=== PATIENT | female | born 1995 | race Caucasian/White ===

== ENCOUNTER 2021-12-29 23:02 | Outpatient (CLI) | payer MEDICAID, SELFPAY ==
[2021-12-29 23:44] VITALS: TEMP 35.8
[2021-12-29 23:46] VITALS: BP 95/54; PULSE 95
[2021-12-29 23:51] VITALS: RESP 16; O2SAT 96
[2021-12-29 23:57] LABS: Nitrazine Paper, PH Inconclusive
[2021-12-30 00:01] VITALS: BP 89/51; PULSE 94
[2021-12-30 00:03] VITALS: BMI 42.5
[2021-12-30 00:05] LABS: Actim Prom Negative
[2021-12-30 00:08] VITALS: TEMP 36.1
[2021-12-30 00:33] VITALS: BP 89/51; PULSE 94; RESP 16; TEMP 36.1; O2SAT 96
[2021-12-30 00:44] LABS: Amphetamines Screen Urine Negative (Negative); Barbiturates Screen Urine Negative (Negative); Benzodiazepines Screen Urine Negative (Negative); Cocaine Screen Urine Negative (Negative); Opiate Screen Urine Negative (Negative); PCP Screen Urine Negative (Negative); THC Screen Urine Positive (Negative)
== END 2021-12-30 00:30 | disposition home or self-care (01) ==
LOC: OPOB 23:08 → OBGYN 23:15
PROVIDERS: Visit Provider Family Medicine
DX: O26.899 Other specified pregnancy related conditions, unspecified trimester (principal); Z3A.00 Weeks of gestation of pregnancy not specified; R10.9 Unspecified abdominal pain; N89.8 Other specified noninflammatory disorders of vagina
CPT/HCPCS: 59025; 80306; 83986; 84112; 99211

== ENCOUNTER 2022-01-09 19:05 | Inpatient (IN) | payer MEDICAID, SELFPAY ==
[2022-01-09] VITALS (10 sets, daily range): BP systolic 100–148; BP diastolic 56–63; PULSE 81–95; RESP 15; O2SAT 97–98; BMI 42.8
[2022-01-09 19:37] LABS: Basophils % 0.2 %; Eosinophils # 0.1 10^3/uL (0.0-0.8); Eosinophils % 0.7 %; Hematocrit 35.5 % (37.0-47.0); Hemoglobin 11.6 g/dL (11.5-15.3); Lymphocytes # 3.1 10^3/uL (0.8-4.8); Lymphocytes % 22.5 %; Mean Corpuscular HGB Conc 32.7 g/dL (30.0-36.0); Mean Corpuscular Volume 91.7 fl (81-99); Mean Platelet Volume 10.2 fL (7.4-10.4); Monocytes % 7.6 %; Neutrophils % 67.8 %; Nucleated Red Blood Cells % 0 %; Platelet Count 326 10^3/cmm (130-400); Red Blood Count 3.87 10^6/uL (4.1-5.3); Red Cell Distribution Width 13.5 % (12.1-15.1); White Blood Count 13.7 10^3/uL (4.0-10.0)
[2022-01-09] MEDS: dextrose 5%-lactated ringers 1,000 ML 125 ML IV (19:51)
[2022-01-09] MEDS: ampicillin 2,000 MG in sodium chloride 0.9% (plus) 50 ML 100 MG IV (19:51)
[2022-01-09 20:11] LABS: Amphetamines Screen Urine Negative (Negative); Barbiturates Screen Urine Negative (Negative); Benzodiazepines Screen Urine Negative (Negative); Cocaine Screen Urine Negative (Negative); Opiate Screen Urine Negative (Negative); PCP Screen Urine Negative (Negative); THC Screen Urine Positive (Negative)
[2022-01-09] MEDS: miSOPROStol 100 mcg tablet 25 MCG VAGINAL (20:21)
[2022-01-09] MEDS: lactated ringers 1,000 ML 999 ML IV ×2 (22:48→23:47)
[2022-01-09] MEDS: ampicillin 1,000 MG in sodium chloride 0.9% (plus) 50 ML 100 MG IV (23:46)
[2022-01-10] VITALS (86 sets, daily range): BP systolic 73–133; BP diastolic 39–80; PULSE 67–98; TEMP 36.6–38.1; O2SAT 98–99
--- NOTE | 2022-01-10 00:19 | ANES.PREANE2 ---
Pre-Anesthetic Assessment Height/Weight: Height 1.6 m Weight 109.769 kg Pulse Resp BP Pulse Ox 88 15 93/55 98 01/10/22 00:15 01/09/22 19:08 01/10/22 00:15 01/10/22 00:10 Preop Diagnosis: Labor pain SUSANA Was Beta Aura taken within 24 hours: N/A Was Clonidine taken within 24 hours: N/A Social Tobacco and No alcohol 1/2 pack/day pack(s) per day Exam alert, oriented x 3, clear to auscultation bilaterally and regular rate & rhythm Airway Submandibular: within normal limits Cervical ROM: within normal limits Mallampati: Class II Dentition: full History/ROS No significant history except as noted and No significant complaints Pulmonary None reported CV/HEM None reported None reported Hepatic None reported GI None reported Metabolic Morbid Obesity and None reported Musc/skel None reported Neuropsych None reported Anesthetic Plan ASA status: 2 Anesthesia: Regional (specify below) Other: SUSANA Risk of > 500 ml blood loss (7ml/kg in children): No Medications/Allergies Home Medications Medication Instructions Recorded Confirmed Last Taken Type citalopram 40 mg tablet (Celexa) 40 mg PO DAILY 01/09/22 01/09/22 01/08/22 19:00 History vitamins-iron fumarate 65 1 tab PO DAILY 01/09/22 01/09/22 01/08/22 19:00 History mg iron-folic acid 1 mg tablet Allergies Allergy/AdvReac Type Severity Reaction Status Date / Time cyclobenzaprine Allergy Mild ALGY-Rash Verified 01/09/22 20:05 [From Flexeril] lavender (Lavandula Allergy Unknown Verified 01/09/22 20:05 angustifolia) shrimp Allergy Unknown Verified 01/09/22 20:05 Current Medications Generic Name Dose Route Start Last Admin Trade Name Freq PRN Reason Stop Dose Admin Dextrose/Lactated Ringer's 1,000 mls @ 125 mls/hr 01/09/22 19:15 01/09/22 19:51 Dextrose 5%-Lactated Ringers IV 125 mls/hr .Q8H JOSE Administration Ampicillin Sodium 1,000 mg/ 50 mls @ 100 mls/hr 01/09/22 23:15 01/09/22 23:46 Sodium Chloride IV 100 mls/hr Q4H JOSE Administration Protocol Lactated Ringer's 1,000 mls @ 999 mls/hr 01/09/22 22:46 01/09/22 23:47 Lactated Ringers IV 999 mls/hr .Q1H1M PRN Administration See label comments Misoprostol 25 mcg 01/09/22 19:09 01/09/22 20:21 Misoprostol 100 Mcg Tablet VAGINAL 25 mcg Q4H PRN Administration cervical ripening PFSH Anesthesia Female Reproductive History : 3 Data Anesthesia : 01/09/22 19:29 Short CBC 01/09/22 Range/Units 19:29 WBC 13.7 H (4.0-10.0) 10^3/uL Hgb 11.6 (11.5-15.3) g/dL Hct 35.5 L (37.0-47.0) % MCV 91.7 (81-99) fl Plt Count 326 (130-400) 10^3/cmm Neut % (Auto) 67.8 % Neut # (Auto) 9.30 H (1.8-7.7) 10^3/uL Cardiac Studies: No Data to Display
--- NOTE | 2022-01-10 00:22 | ANES.PROC ---
Anesthesia Procedures Procedure/Date: 01/10/22 Epidural: Time Out Performed: Yes Consents Signed: Procedure Consent Consent: requested by attending/covering physician, from patient, risks and benefits reviewed and patient agrees to proceed Lumbar Level: L2-L3 Epidural position: sitting Epidural procedure: sterile prep of area, 1% lidocaine to numb the area, 18 g needle, negative for paresthesia passed, test dose given, 1.5% xylocaine 1:200k epi (4cc), 0.2% Ropivacaine bolus ml (4cc and Fentanyl 100mcg), placed PCEA, no systemic response, sterile dressing applied, L.U.D. no apparent complications and 0.2% Ropiavacaine @ mls/hr (11cc/hour. MAKENNA at 8cm. cath place 3cm into space. Pt tolerated well)
[2022-01-10] MEDS: dextrose 5%-lactated ringers 1,000 ML 125 ML IV ×2 (03:41→09:04)
[2022-01-10] MEDS: ampicillin 1,000 MG in sodium chloride 0.9% (plus) 50 ML 100 MG IV ×2 (03:44→07:42)
[2022-01-10] MEDS: oxytocin 30 UNIT/500 ML BAG IV (09:35)
[2022-01-10] MEDS: ondansetron 2 mg/ML SDV 2 mL 4 MG IVP (10:59)
--- NOTE | 2022-01-10 11:40 | P.PCNOB_ITS ---
Delivery Note: Date of delivery: January 10, 2022 Pre-delivery diagnoses: 1. 26-year-old 3 para 2-0-0-2 with an estimated gestational age of 40 weeks presenting for induction. 2. Marijuana positive 3. Rh- Post-delivery diagnoses: Status post spontaneous vaginal delivery Procedure: Spontaneous vaginal delivery Delivering Physician: Regulo Stuart Estimated blood loss (mL): 150 Pre-Delivery Course: The patient presented to the hospital for induction due to postdates. She was placed on Cytotec 25 mcg x 2. An amniotomy was performed. She made minimal change for about 4 hours, and Pitocin was added. Delivery: DELIVERY: The patient progressed to complete without difficulty. She delivered a male with a weight of 7 pounds 14 ounces with Apgars of 7, 9. The baby was delivered from the MARIANNA position and placed on the mother's abdomen. The cord was then clamped and cut. There was a nuchal cord x1 and an arm cord x1. There was no meconium. The placenta and 3 vessel cord were delivered intact shortly thereafter. The perineum and vaginal vault were carefully examined. A second-degree posterior midline laceration was noted which was repaired with 3-0 Vicryl. Both the mother and the baby were in stable condition. Post-Delivery Status: Good A&P Assessment and plan (1) 40 weeks gestation of : Routine care Status: Resolved (2) Spontaneous vaginal delivery: Status: Resolved Coding Level of Care Code Acute Senior Network Architect for Chg Fwd Diagnoses 40 weeks gestation of Z3A.40 Spontaneous vaginal delivery O80
--- NOTE | 2022-01-10 13:09 | PC.NURSE ---
This nurse spoke to Dr. Stuart who stated that he had looked over tracing AND wanted this nurse to continue to go up on the pitocin at 1000, this nurse spoke to sade again at 1021 who stated to continue to go up on the pitocin and that he had seen the tracing, this nurse spoke to Sade again at 1044 who stated he had reviewed the tracing and stated to go up again on the pitocin. This nurse spoke to sade again at 1058 to let him know I had turned the pitocin off at 1051 which he agreed that was the right decision.
--- NOTE | 2022-01-10 17:36 | PC.NURSE ---
Dr. Stuart came in and rubbed the pt's uterus he did note it was above the umbilicus but was firm and scant bleeding so he was not concerned. This was at 1720.
[2022-01-10] MEDS: docusate sodium 100 mg Capsule PO (18:06)
[2022-01-10] MEDS: ibuprofen 800 mg tablet PO ×2 (18:06→21:01)
--- NOTE | 2022-01-10 20:35 | PC.NURSE ---
patient off unit for cigarette. Dr. Stuart aware and has okayed patient to be off unit to smoke per day shift.
[2022-01-11] VITALS (7 sets, daily range): BP systolic 103–130; BP diastolic 61–74; PULSE 74–85; RESP 15–18; TEMP 36.7–37.8
[2022-01-11 00:51] LABS: Hematocrit 34.9 % (37.0-47.0); Hemoglobin 11.3 g/dL (11.5-15.3); Mean Corpuscular HGB Conc 32.4 g/dL (30.0-36.0); Mean Corpuscular Hemoglobin 30.2 pg (28.0-34.0); Mean Corpuscular Volume 93.3 fl (81-99); Mean Platelet Volume 10.8 fL (7.4-10.4); Platelet Count 285 10^3/cmm (130-400); Red Blood Count 3.74 10^6/uL (4.1-5.3); Red Cell Distribution Width 13.5 % (12.1-15.1); White Blood Count 14.1 10^3/uL (4.0-10.0)
--- NOTE | 2022-01-11 01:54 | PC.NURSE ---
This nurse entered room to have patient sign consent for Rhogam and get vitals, patient states I will get it but not right now, I'm tired.
--- NOTE | 2022-01-11 08:37 | ANE.PACU2 ---
Inpatient post-anesthesia follow up: Airway intact: Yes Vital signs: Temperature 98.0 F Pulse Rate 85 Respiratory Rate 15 Blood Pressure 117/67 Pulse Oximetry 98 Oxygen Delivery Me thod Non-Rebreather Oxygen Flow Rate 10 Fraction of Inspir ed Oxygen Hydration adequate: Yes Nausea and vomiting: No Pain level: 2 Mental status: Baseline
[2022-01-11] MEDS: ibuprofen 800 mg tablet PO (09:25)
[2022-01-11] MEDS: docusate sodium 100 mg Capsule PO (09:25)
[2022-01-11] MEDS: prenatal vitamin Capsule 1 CAP PO (09:25)
--- NOTE | 2022-01-14 08:06 | PM.OPHPUD ---
Labor & Delivery H&P Update Date of Procedure: January 09, 2022 Date H&P Performed: 01/05/22 Changes to previous documentation: None Admission Diagnosis: 26-year-old 3 para 2-0-0-2 at 40 weeks and 4 days estimated gestational age presenting for induction Preop diagnosis: Postdates multigravida female Planned procedure: Spontaneous vaginal delivery Other information: The patient is a 26-year-old multigravida female presenting to the hospital for induction. was remarkable for being positive for marijuana. Her blood type was B-. Her antibody screen was negative. She was GBS positive. She is rubella immune. The remainder of her labs are within normal limits.
--- NOTE | 2022-01-14 08:09 | PM.OBGYDC ---
Discharge Providers SPECIAL AGENT SECRET SERVICE Date of Admission: 01/09/22 19:05 Date of Discharge: 01/11/22 Attending Provider at Admission: Regulo Stuart MD Attending Provider at Discharge: Regulo Stuart MD Diagnoses at Discharge Discharge Diagnosis (1) 40 weeks gestation of : Status: Resolved (2) Spontaneous vaginal delivery: Status: Resolved Reason for Visit Reason for Visit: INDUCTION Hospital Course Hospital Course The patient presented to the hospital for induction due to postdates. She was placed on GBS protocol due to her GBS status. She was placed on Cytotec. An amniotomy was performed. Pitocin was added for augmentation. She progressed to complete and had an unremarkable delivery of a healthy-appearing male . Her course was also unremarkable. DFS was contacted due to the fact that she did not have custody of her previous children. Her bleeding was within normal limits. Her pain was well controlled. She did have to leave frequently for smoking. There were no other concerns. Information Peripartum Data: Infant Delivery Method: Vaginal Physical Exam Narrative: The patient is alert. She appears comfortable. Her heart has a regular rate and rhythm with no murmurs appreciated. Lungs are clear to auscultation bilaterally. Her fundus is firm and below the umbilicus. Urinary Catheter Management: Bear: Cath Placed During This Visit: yes Reason for Continuing Indwelling Catheter: Other Urinary Catheter Date of Insertion: 01/10/22 Urinary Catheter Time of Insertion: 00:40 Discharge Data Studies Completed and Pending Laboratory Results WBC 14.1 10^3/uL (4.0-10.0) H 01/11/22 00:13 RBC 3.74 10^6/uL (4.1-5.3) L 01/11/22 00:13 Hgb 11.3 g/dL (11.5-15.3) L 01/11/22 00:13 Hct 34.9 % (37.0-47.0) L 01/11/22 00:13 MCV 93.3 fl (81-99) 01/11/22 00:13 MCH 30.2 pg (28.0-34.0) 01/11/22 00:13 MCHC 32.4 g/dL (30.0-36.0) 01/11/22 00:13 RDW 13.5 % (12.1-15.1) 01/11/22 00:13 Plt Count 285 10^3/cmm (130-400) 01/11/22 00:13 MPV 10.8 fL (7.4-10.4) H 01/11/22 00:13 Neut % (Auto) 67.8 % 01/09/22 19:29 Lymph % (Auto) 22.5 % 01/09/22 19:29 [place] % (Auto) 7.6 % 01/09/22 19:29 Eos % (Auto) 0.7 % 01/09/22 19:29 Baso % (Auto) 0.2 % 01/09/22 19:29 Neut # (Auto) 9.30 10^3/uL (1.8-7.7) H 01/09/22 19:29 Lymph # (Auto) 3.1 10^3/uL (0.8-4.8) 01/09/22 19:29 [place] # (Auto) 1.0 10^3/uL (0.2-0.9) H 01/09/22 19:29 Eos # (Auto) 0.1 10^3/uL (0.0-0.8) 01/09/22 19:29 Baso # (Auto) 0.0 10^3/uL (0.0-0.1) 01/09/22 19: Nucleated RBC % (auto) 0 % 01/09/22 19:29 Nucleated RBCs # 0.0 /100WBC 01/09/22 19:29 Urine Opiates Screen Negative ng/mL (Negative) 01/09/22 19:35 Ur Barbiturates Screen Negative ng/mL (Negative) 01/09/22 19:35 Ur Phencyclidine Scrn Negative ng/mL (Negative) 01/09/22 19:35 Ur Amphetamines Screen Negative ng/mL (Negative) 01/09/22 19:35 U Benzodiazepines Scrn Negative ng/mL (Negative) 01/09/22 19:35 Urine Cocaine Screen Negative ng/mL (Negative) 01/09/22 19:35 U Marijuana (THC) Screen Positive ng/mL (Negative) H 01/09/22 19:35 Blood Type B Negative 01/09/22 19:35 Rho(D) Type Negative 01/09/22 19:35 Antibody Screen Negative 01/09/22 19:35 Screen Negative (Negative) 01/11/22 00:13 Vitals Last Vital Signs Temp 98.9 F 01/11/22 14:04 Pulse 74 01/11/22 14:04 Resp 18 01/11/22 14:04 BP 130/74 01/11/22 14:04 Pulse Ox 98 01/10/22 00:10 Discharge Plan Discharge Patient Disposition: Home Condition: Stable Prescriptions: New ibuprofen 800 mg Tablet 800 mg PO TID Qty: 45 0RF Continued Celexa 40 mg Tablet 40 mg PO DAILY 0RF vit-iron fum-folic ac 65 mg iron- 1 mg Tablet 1 tab PO DAILY 0RF Discharge Orders: Discharge Order (Routine); Ordered 01/11/22 Ordered By: Regulo Stuart Referrals: Regulo Stuart MD [Physician] - 02/28/22 2:15 pm Discharge Diet: Usual diet Discharge Activity: Limit activity as instructed Patient Instructions: Depression (DC), Bleeding (DC), Preeclampsia and Eclampsia After Delivery (GEN), OB Discharge Report, OB Food/Drug Interaction Guide, OB Care at Home, Opioid Safety, OB Home Care, OB Vaginal Deliveries, Abnormal Bleeding Discharge Attestations SPECIAL AGENT SECRET SERVICE Time Spent in Discharge Care*: greater than 30 min Coding Level of Care Code Acute Commercial Leasing Agent for Chg Fwd Diagnoses 40 weeks gestation of Z3A.40 Spontaneous vaginal delivery O80
== END 2022-01-11 14:00 | disposition home or self-care (01) | DRG 806 ==
LOC: OPOB 19:06 → OBGYN 19:06
PROVIDERS: Admitting Provider Family Medicine; Visit Provider Family Medicine
DX: O48.0 Post-term pregnancy (principal); O36.0930 Maternal care for other rhesus isoimmunization, third trimester, not applicable or unspecified; Z37.0 Single live birth; O99.324 Drug use complicating childbirth; Z3A.40 40 weeks gestation of pregnancy; F12.90 Cannabis use, unspecified, uncomplicated; O69.2XX0 Labor and delivery complicated by other cord entanglement, with compression, not applicable or unspecified; O69.0XX0 Labor and delivery complicated by prolapse of cord, not applicable or unspecified; O70.1 Second degree perineal laceration during delivery; O99.824 Streptococcus B carrier state complicating childbirth
CPT/HCPCS: 12345; 36415; 51702; 59025; 59409; 80306; 85025; 85027; 85460; 86850; 86900; 90384; J0290; J2405; J2795; J3010